=== PATIENT | male | born 1960 | race Caucasian/White ===

== ENCOUNTER → 2016-10-24 | Outpatient (CLI) | payer OTHER | LOC: LAB 11:46 | DX: N40.0 Benign prostatic hyperplasia without lower urinary tract symptoms (principal) | CPT/HCPCS: 36415; 84153 ==

== ENCOUNTER → 2016-10-27 | Outpatient (CLI) | payer OTHER | LOC: HEART 5 08:51 | DX: R07.9 Chest pain, unspecified (principal); R06.02 Shortness of breath; I34.8 Other nonrheumatic mitral valve disorders | CPT/HCPCS: 78452; 93306; A9502; J2785 ==

== ENCOUNTER → 2020-09-30 | Outpatient (CLI) | payer OTHER | LOC: KOH-I 10:48 | DX: M54.2 Cervicalgia (principal); M54.6 Pain in thoracic spine; M54.5 Low back pain; R05 Cough; M48.02 Spinal stenosis, cervical region; M47.812 Spondylosis without myelopathy or radiculopathy, cervical region; M51.34 Other intervertebral disc degeneration, thoracic region; M48.04 Spinal stenosis, thoracic region; M43.17 Spondylolisthesis, lumbosacral region; M47.817 Spondylosis without myelopathy or radiculopathy, lumbosacral region; R91.8 Other nonspecific abnormal finding of lung field | CPT/HCPCS: 71046; 72050; 72070; 72110 ==

== ENCOUNTER → 2021-11-25 | Outpatient (CLI) | payer OTHER | LOC: KOH-I 14:55 | DX: M47.812 Spondylosis without myelopathy or radiculopathy, cervical region (principal) | CPT/HCPCS: 72040 ==

== ENCOUNTER → 2021-12-13 | Outpatient (CLI) | payer OTHER | LOC: HEART 5 09:00 | DX: R07.9 Chest pain, unspecified (principal); R06.02 Shortness of breath; I08.2 Rheumatic disorders of both aortic and tricuspid valves | CPT/HCPCS: 93306 ==

== ENCOUNTER → 2022-03-01 | Outpatient (CLI) | payer OTHER | LOC: HEART 5 10:52 | DX: J44.9 Chronic obstructive pulmonary disease, unspecified (principal) | CPT/HCPCS: 94060; 94729 ==

== ENCOUNTER → 2022-03-22 | Outpatient (CLI) | payer OTHER | LOC: KOH-I 10:49 | DX: M54.2 Cervicalgia (principal); M54.6 Pain in thoracic spine; M54.50 Low back pain, unspecified; R05.9 Cough, unspecified; R91.8 Other nonspecific abnormal finding of lung field; M47.812 Spondylosis without myelopathy or radiculopathy, cervical region; M47.816 Spondylosis without myelopathy or radiculopathy, lumbar region | CPT/HCPCS: 71046; 72040; 72070; 72100 ==

== ENCOUNTER → 2022-03-23 | Outpatient (CLI) | payer OTHER | LOC: KOH-I 14:00 | DX: F17.210 Nicotine dependence, cigarettes, uncomplicated (principal); R91.8 Other nonspecific abnormal finding of lung field | CPT/HCPCS: 71271 ==